=== PATIENT | male | born 1965 | race Hispanic/Latino ===

== ENCOUNTER → 2024-06-30 | Day surgery (SDC) | payer OTHER ==
[~2024-06-30] MED LIST: ABILIFY2 MG PO; FENTANYL CITRATE/PF 100MCG/2 ML INJ ONE; GLYCOPYRROLATE INJ 0.2 MG/ML VIAL ONE; HUMALOG KW200 UNIT/1 SQ; JARDIANCE25 MG PO; LEXAPRO10 MG PO; LIDOCAINE HCL 2% LOCAL INJ 5 ML SDV VIAL INJ ONE; LIPITOR10 MG PO; METOCLOPRAMIDE HCL 10 MG/2ML VIAL ONE; ONE DAILY MEN'1 EACH PO; OZEMPIC0.25 MG/02 INJ; PROPOFOL IV EMULSION 10 MG/ML 20 ML VIAL ONE; PROPOFOL IV EMULSION 50 ML IV ONE; TOUJEO MAX300 UNIT/1 SQ
[2024-06-30] MEDS: LACTATED RINGER'S 1,000 ML ONE (08:32)
[2024-06-30 11:30] VITALS: TEMP 97
[2024-06-30 12:15] VITALS: BP 105/78; PULSE 82; RESP 16; O2SAT 100
== END | disposition home or self-care (01) ==
LOC: OR 08:18
PROVIDERS: ATTEND Internal Medicine Gastroenterology
DX: K29.50 Unspecified chronic gastritis without bleeding (principal); D12.2 Benign neoplasm of ascending colon; D12.4 Benign neoplasm of descending colon; D12.0 Benign neoplasm of cecum; D12.5 Benign neoplasm of sigmoid colon; K22.89 Other specified disease of esophagus; K22.10 Ulcer of esophagus without bleeding; K21.9 Gastro-esophageal reflux disease without esophagitis; K44.9 Diaphragmatic hernia without obstruction or gangrene; K64.8 Other hemorrhoids; C61 Malignant neoplasm of prostate; G47.33 Obstructive sleep apnea (adult) (pediatric); E78.5 Hyperlipidemia, unspecified; E11.9 Type 2 diabetes mellitus without complications; E66.9 Obesity, unspecified; M06.9 Rheumatoid arthritis, unspecified; G89.29 Other chronic pain; F41.9 Anxiety disorder, unspecified; F32.A Depression, unspecified; Z79.84 Long term (current) use of oral hypoglycemic drugs; Z79.85 Long-term (current) use of injectable non-insulin antidiabetic drugs; Z79.4 Long term (current) use of insulin; Z79.899 Other long term (current) drug therapy
CPT/HCPCS: 43239; 45385; J2003; J2470; J2704 ×2; J2765; J3010; J7121; 45378